=== PATIENT | female | born 1995 | race Caucasian/White ===

== ENCOUNTER → 2018-07-07 | Outpatient (CLI) | payer MEDICAID ==
[~2018-07-07] VITALS: Ht 170.2 cm; Wt 73.9 kg
[~2018-07-07] MED LIST: MACROBID 1100 MG/CAP PO; NORCO 325 MG-51 TAB PO; PHENERGAN W/CO120 M1 PO; PRENATAL1 TA7 PO
[2018-07-07 18:50] VITALS: BP 113/60
--- NOTE | 2018-07-07 19:42 | NUR ---
ROCEPHIN GIVEN IV AFTER LR FINISHED AND LINE HAS BEEN FLUSHED WITH NS.
[2018-07-07 19:47] LABS: HEMATOCRIT 43.7 % (37.0-47.0); HEMOGLOBIN 13.9 g/dL (12.5-16.0); MEAN PLATELET VOLUME 11.1 fl (7.4-10.4); RED BLOOD COUNT 5.19 M/mm3 (4.10-5.30); RED CELL DISTRIBUTION WIDTH 13.2 % (11.5-14.5); WHITE BLOOD COUNT 9.5 K/mm3 (4.8-10.8)
[2018-07-07 19:56] LABS: ALBUMIN 4.8 g/dL (3.5-5.0); CALCIUM 9.6 mg/dL (8.4-10.2); POTASSIUM 3.5 mmol/L (3.6-5.0); TOTAL BILIRUBIN 0.4 mg/dL (0.2-1.3); TOTAL PROTEIN 7.9 g/dL (6.3-8.2)
[2018-07-07 20:42] LABS: URINE APPEARANCE HAZY; URINE COLOR YELLOW
[2018-07-07 20:46] LABS: URINE GLUCOSE NEGATIVE (NEGATIVE); URINE KETONE 2+ (NEGATIVE); URINE PROTEIN(semi-quant) TRACE mg/dL (NEGATIVE)
[2018-07-07 20:47] LABS: URINE BILIRUBIN NEGATIVE (NEGATIVE); URINE BLOOD TRACE (NEGATIVE); URINE LEUKOCYTE ESTERASE NEGATIVE (NEGATIVE); URINE NITRATE NEGATIVE (NEGATIVE); URINE UROBILINOGEN NORMAL (NORMAL)
[2018-07-07 20:48] LABS: URINE MUCUS PRESENT (NOT PRESENT)
[2018-07-07 21:20] VITALS: BP 115/70
--- NOTE | 2018-07-07 21:22 | NUR ---
PATIENT DECLINES 3RD BAG OF IV FLUIDS AND STATES THAT SHE FEELS MUCH BETTER. PATIENT IS PROVIDED HOME ZOFRAN PACK AND INFORMED THAT SHE CAN [employer]NER HER ANTIBIOTICS TOMORROW AND TO CONTINUE THEM ALL THE WAY THROUGH.
== END ==
LOC: AMSURD 18:35
PROVIDERS: Nurse Practitioner Primary Care
DX: E86.0 Dehydration (principal); R11.2 Nausea with vomiting, unspecified
CPT/HCPCS: J0696; J2405; J7120

== ENCOUNTER → 2018-08-07 | Outpatient (CLI) | payer MEDICAID ==
[2018-07-07 21:20] VITALS: BP 115/70
[~2018-08-07] MED LIST changes: +CEPHALEXIN500 M1 PO; +CYCLOBENZAPRINE10 M1 PO
[2018-08-07 18:37] LABS: CALCIUM 9.6 mg/dL (8.4-10.2); POTASSIUM 3.8 mmol/L (3.6-5.0)
== END ==
LOC: LAB 18:03
PROVIDERS: Nurse Practitioner Family
DX: R10.9 Unspecified abdominal pain (principal); R30.0 Dysuria; R31.9 Hematuria, unspecified